=== PATIENT | female | born 1995 | race Two or more races ===

== ENCOUNTER 2021-04-04 07:54 | Emergency (ER) | payer OTHER ==
[~2021-04-04] VITALS: Ht 160 cm; Wt 90.7 kg
== END 2021-04-04 12:43 | disposition home or self-care (01) ==
LOC: ER 07:54
DX: K29.20 Alcoholic gastritis without bleeding (principal); R10.13 Epigastric pain; Z03.818 Encounter for observation for suspected exposure to other biological agents ruled out